=== PATIENT | male | born 1980 | race Caucasian/White ===

== ENCOUNTER 2021-12-19 19:56 | Emergency (ER) | payer MEDICAID ==
[2021-12-19] MEDS ORDERED: Zofran 4 MG/2 ML VIAL IV ONE (20:17)
[2021-12-19] MEDS ORDERED: Sodium Chloride 0.9% 1000 ML 1,000 ML IV STA (20:17)
[2021-12-19] MEDS ORDERED: MORPHINE SULFATE 2 MG INJ IV ONE (20:17)
[2021-12-19] MEDS ORDERED: Zofran 4 MG/2 ML VIAL ONE (20:21)
[2021-12-19] MEDS ORDERED: MORPHINE SULFATE 2 MG INJ ONE (20:21)
[2021-12-19] MEDS ORDERED: Sodium Chloride 0.9% 1000 ML 1,000 ML ONE (20:21)
--- NOTE | 2021-12-19 20:24 | ERPHSYRPT ---
- History of Present Illness Time Seen by Provider: 12/19/21 20:22 Historian: patient Exam Limitations: no limitations Physician History: Patient is a 41-year-old male presents to emergency department for evaluation of epigastric pain. Patient states he has been experiencing epigastric pain intermittently for approximately 1 week. Pain is getting progressively worse. Patient took Percocet today at approximately 4 PM. In spite of this patient is still experiencing pain. Patient admits to history of cholecystectomy. No associated nausea or vomiting. Last bowel movement was at 6 PM. Patient states stool is well formed. No diarrhea. No trauma. No fever. Symptoms are mild to moderate in intensity. No specific worsening improving factors. Patient denies history of the same. He voices no other complaint or concerns at this time. Portions of this note were created with voice recognition technology. There may be grammatical, spelling, punctuation or sound alike errors Timing/Duration: week(s) (1 week) Activities at Onset: none Quality: aching Abdominal Pain Onset Location: epigastric Pain Radiation: no radiation Severity of Pain-Max: moderate Severity of Pain-Current: mild Modifying Factors: Improves With: nothing Associated Symptoms: denies symptoms Previous symptoms: no prior history Allergies/Adverse Reactions: ibuprofen Allergy (Severe, Verified 12/19/21 20:23) Tightness of Throat Iodine and Iodide Containing Produc Allergy (Severe, Verified 12/19/21 20:28) Fainting ketorolac [From Toradol] Allergy (Severe, Verified 12/19/21 20:23) Tightness of Throat methadone Allergy (Severe, Verified 12/19/21 20:23) Vomiting quetiapine [From Seroquel] Allergy (Severe, Verified 12/19/21 20:23) Blisters Home Medications: Cyclobenzaprine HCl 10 mg [Cyclobenzaprine 10 MG] 1 tab PO TID 12/19/21 [History] Oxycodone HCl/Acetaminophen [Percocet 5-325 mg Tablet] 1 tab PO TID 12/19/21 [History] Pregabalin [Lyrica 100Mg] 1 tab PO TID 12/19/21 [History] - Review of Systems Constitutional: No Symptoms, No Fever, No Chills Eyes: No Symptoms Ears, Nose, & Throat: No Symptoms Respiratory: No Symptoms, No Cough, No Dyspnea Cardiac: No Symptoms, No Chest Pain, No Edema, No Syncope Abdominal/Gastrointestinal: No Symptoms, No Abdominal Pain, No Nausea, No Vomiting, No Diarrhea Genitourinary Symptoms: No Symptoms, No Dysuria Musculoskeletal: No Symptoms, No Back Pain, No Neck Pain Skin: No Symptoms, No Rash Neurological: No Symptoms, No Dizziness, No Focal Weakness, No Sensory Changes Psychological: No Symptoms Endocrine: No Symptoms Hematologic/Lymphatic: No Symptoms Immunological/Allergic: No Symptoms All Other Systems: Reviewed and Negative - Nursing Vital Signs Nursing Vital Signs: Initial Vital Signs Pulse Rate 98 H 12/19/21 20:20 Respiratory Rate 18 12/19/21 20:20 Blood Pressure 131/96 12/19/21 20:20 O2 Sat by Pulse Oximetry 97 12/19/21 20:20 Pain Scale Pain Intensity 0 - Physical Exam General Appearance: no apparent distress, alert Eye Exam: PERRL/EOMI, eyes nml inspection Ears, Nose, Throat Exam: normal ENT inspection, TMs normal, pharynx normal, moist mucous membranes Neck Exam: normal inspection, non-tender, supple, full range of motion Respiratory Exam: normal breath sounds, lungs clear, airway intact, No respiratory distress Cardiovascular Exam: regular rate/rhythm, normal heart sounds Gastrointestinal/Abdomen Exam: soft, tenderness (Epigastric tenderness to palpation. Overlying soft tissue intact. No signs of trauma. No distention. No hernia. No peritoneal signs), No distention, No mass, No guarding, No ecchymosis, No organomegaly, No splenomegaly Male Genitalia Exam: other (Patient denies testicular pain or tenderness) Back Exam: normal inspection, normal range of motion, No CVA tenderness, No vertebral tenderness Extremity Exam: normal inspection, normal range of motion, pelvis stable Neurologic Exam: alert, oriented x 3, cooperative, normal mood/affect, nml cerebellar function, sensation nml, No motor deficits Skin Exam: normal color, warm, dry Lymphatic Exam: No adenopathy SpO2 Interpretation: normal SpO2: 98 O2 Delivery: Room Air - Course Nursing assessment & vital signs reviewed: Yes EKG Interpreted by Me: RATE (80), Sinus Rhythm, NORMAL AXIS, NORMAL INTERVALS - CT Exams Abdomen/Pelvis CT Interpretation: Tele-radiologist Report (No comps. Stomach distended with fluid. Normal appendix. Remaining abdomen pelvis negative.) Ordered Tests: Active Orders 24 hr Category Date Time Status EKG-ER Only STAT Care 12/19/21 20:25 Active IV Insertion STAT Care 12/19/21 20:17 Active ABDOMEN AND PELVIS W/0 CONTRAS [CT] Stat Exams 12/19/21 20:18 Taken CBC W DIFF Stat Lab 12/19/21 20:31 Completed CMP Stat Lab 12/19/21 20:31 Completed LIPASE Stat Lab 12/19/21 20:31 Completed TROPONIN Q3H Lab 12/19/21 20:31 Completed TROPONIN Q3H Lab 12/19/21 23:30 Ordered TROPONIN Q3H Lab 12/20/21 02:30 Ordered TROPONIN Q3H Lab 12/20/21 05:30 Ordered TROPONIN Q3H Lab 12/20/21 08:30 Ordered UA W/RFX CULTURE Stat Lab 12/19/21 20:20 Completed Medication Summary Discontinued Medications Generic Name Dose Route Start Last Admin Trade Name Freq PRN Reason Stop Dose Admin Sodium Chloride 1,000 mls @ 999 mls/hr 12/19/21 20:17 12/19/21 21:25 Sodium Chloride 0.9% 1000 Ml IV 12/19/21 21:17 Infused .Q1H1M STA Infusion Sodium Chloride Confirm 12/19/21 20:21 Sodium Chloride 0.9% 1000 Ml Administered 12/19/21 20:22 Dose 1,000 mls @ ud .ROUTE .STK-MED ONE Morphine Sulfate 2 mg 12/19/21 20:17 12/19/21 20:24 Morphine Sulfate 2 Mg/Ml Inj IV 12/19/21 20:18 2 mg STAT ONE Administration Morphine Sulfate Confirm 12/19/21 20:21 Morphine Sulfate 2 Mg/Ml Inj Administered 12/19/21 20:22 Dose 2 mg .ROUTE .STK-MED ONE Ondansetron HCl 4 mg 12/19/21 20:17 12/19/21 20:24 Ondansetron Hcl 4 Mg/2 Ml Vial IV 12/19/21 20:18 4 mg STAT ONE Administration Ondansetron HCl Confirm 12/19/21 20:21 Ondansetron Hcl 4 Mg/2 Ml Vial Administered 12/19/21 20:22 Dose 4 mg .ROUTE .STK-MED ONE Lab/Rad Data: Laboratory Result Diagrams 12/19/21 20:31 12/19/21 20:31 Laboratory Results 07/01/0312/19/21 12/19/21 Range/Units 20:31 20:31 20:31 WBC 9.6 (4.0-10.5) x10^3/uL RBC 4.72 (4.1-5.6) x10^6/uL Hgb 14.2 (12.5-18.0) g/dL Hct 42.9 (42-50) % MCV 90.9 (78-100) fL MCH 30.1 (26-32) pg MCHC 33.1 (32-36) g/dL RDW 12.4 (11.5-14.0) % Plt Count 245 (150-450) x10^3/uL MPV 11.8 H (7.5-11.0) fL Gran % 65.2 (36.0-66.0) % Immature Gran % (Auto) 0.4 (0.00-0.4) % Nucleat RBC Rel Count 0.0 (0.00-0.1) % Eos # (Auto) 0.17 (0-0.5) x10^3/uL Immature Gran # (Auto) 0.04 H (0.00-0.03) x10^3u/L Absolute Lymphs (auto) 2.53 (1.0-4.6) x10^3/uL Absolute Monos (auto) 0.57 (0.0-1.3) x10^3/uL Absolute Nucleated RBC 0.00 (0.00-0.01) x10^3u/L Lymphocytes % 26.3 (24.0-44.0) % Monocytes % 5.9 (0.0-12.0) % Eosinophils % 1.8 (0.00-5.0) % Basophils % 0.4 (0.0-0.4) % Absolute Granulocytes 6.26 (1.4-6.9) x10^3/uL Basophils # 0.04 (0-0.4) x10^3/uL Sodium 135 L (137-145) mmol/L Potassium 3.9 (3.5-5.1) mmol/L Chloride 102 (98-107) mmol/L Carbon Dioxide 29 (22-30) mmol/L Anion Gap 9.0 (5-15) MEQ/L BUN 13 (9-20) mg/dL Creatinine 0.96 (0.66-1.25) mg/dL Estimated GFR > 60.0 ML/MIN Glucose 130 H (74-106) mg/dL Calcium 7.8 L (8.4-10.2) mg/dL Total Bilirubin 0.30 (0.2-1.3) mg/dL AST 28 (17-59) U/L ALT 18 (0-50) U/L Alkaline Phosphatase 54 (38-126) U/L Troponin I < 0.012 (0.000-0.034) ng/mL Serum Total Protein 5.7 L (6.3-8.2) g/dL Albumin 3.2 L (3.5-5.0) g/dL Lipase 47 (23-300) U/L Urinalys Dipstick Clnc Urine Color (YELLOW) Urine Appearance (CLEAR) Urine pH (5-6) Ur Specific Schulter (1.005-1.025) POC Urine Protein Conf (Negative) Urine Ketones (NEGATIVE) Urine Nitrite (NEGATIVE) Urine Bilirubin (NEGATIVE) Urine Urobilinogen (0-1) mg/dL Urine Leukocytes (NEGATIVE) Urine WBC (Auto) (0-5) /HPF Urine RBC (Auto) (0-2) /HPF U Epithel Cells (Auto) (FEW) /HPF Urine Bacteria (Auto) (NEGATIVE) /HPF Urine RBC (0-5) Cezar/ul Urine Mucus (Auto) (NEGATIVE) /HPF Ur Culture Indicated? Urine Glucose (NEGATIVE) mg/dL 12/19/21 Range/Units 20:20 WBC (4.0-10.5) x10^3/uL RBC (4.1-5.6) x10^6/uL Hgb (12.5-18.0) g/dL Hct (42-50) % MCV (78-100) fL MCH (26-32) pg MCHC (32-36) g/dL RDW (11.5-14.0) % Plt Count (150-450) x10^3/uL MPV (7.5-11.0) fL Gran % (36.0-66.0) % Immature Gran % (Auto) (0.00-0.4) % Nucleat RBC Rel Count (0.00-0.1) % Eos # (Auto) (0-0.5) x10^3/uL Immature Gran # (Auto) (0.00-0.03) x10^3u/L Absolute Lymphs (auto) (1.0-4.6) x10^3/uL Absolute Monos (auto) (0.0-1.3) x10^3/uL Absolute Nucleated RBC (0.00-0.01) x10^3u/L Lymphocytes % (24.0-44.0) % Monocytes % (0.0-12.0) % Eosinophils % (0.00-5.0) % Basophils % (0.0-0.4) % Absolute Granulocytes (1.4-6.9) x10^3/uL Basophils # (0-0.4) x10^3/uL Sodium (137-145) mmol/L Potassium (3.5-5.1) mmol/L Chloride (98-107) mmol/L Carbon Dioxide (22-30) mmol/L Anion Gap (5-15) MEQ/L BUN (9-20) mg/dL Creatinine (0.66-1.25) mg/dL Estimated GFR ML/MIN Glucose (74-106) mg/dL Calcium (8.4-10.2) mg/dL Total Bilirubin (0.2-1.3) mg/dL AST (17-59) U/L ALT (0-50) U/L Alkaline Phosphatase (38-126) U/L Troponin I (0.000-0.034) ng/mL Serum Total Protein (6.3-8.2) g/dL Albumin (3.5-5.0) g/dL Lipase (23-300) U/L Urinalys Dipstick Clnc MAIN LAB Urine Color YELLOW (YELLOW) Urine Appearance CLEAR (CLEAR) Urine pH 6.0 (5-6) Ur Specific Schulter 1.015 (1.005-1.025) POC Urine Protein Conf NEGATIVE (Negative) Urine Ketones NEGATIVE (NEGATIVE) Urine Nitrite NEGATIVE (NEGATIVE) Urine Bilirubin NEGATIVE (NEGATIVE) Urine Urobilinogen 0.2 (0-1) mg/dL Urine Leukocytes NEGATIVE (NEGATIVE) Urine WBC (Auto) NONE (0-5) /HPF Urine RBC (Auto) NONE (0-2) /HPF U Epithel Cells (Auto) NONE (FEW) /HPF Urine Bacteria (Auto) NONE (NEGATIVE) /HPF Urine RBC NEGATIVE (0-5) Cezar/ul Urine Mucus (Auto) SLIGHT (NEGATIVE) /HPF Ur Culture Indicated? NO Urine Glucose NEGATIVE (NEGATIVE) mg/dL - Progress Progress: improved Progress Note: Patient reassessed. Epigastric pain resolved. No chest pain or shortness of breath CT abdomen pelvis negative. EKG normal sinus rhythm. Troponin negative. Mild hypocalcemia. Patient received calcium gluconate. Lipase normal. Patient received a dose of Protonix in our ED. He prescription for Protonix was forwarded to patient's pharmacy. Mild hyponatremia. IV fluids infused. Patient states he drinks approximately 20 cans of Coca-Cola per day. Patient advised that he should consider cutting back on the soda pop. Patient states he is ready for discharge. No indication for further work-up at this time. Will discharge home. Patient agrees to follow-up with primary care doctor within 48 hours for evaluation. Portions of this note were created with voice recognition technology. There may be grammatical, spelling, punctuation or sound alike errors 12/19/21 21:39 Counseled pt/family regarding: lab results, diagnosis, need for follow-up, rad results - Departure Departure Disposition: Home Clinical Impression: Hypocalcemia, Epigastric pain, Hypoalbuminemia Condition: Stable Critical Care Time: No Referrals: DOCTOR,NO FAMILY [Primary Care Provider] - Follow up/PCP as directed MARIE FRANK [ACTIVE STAFF] - Follow up/PCP as directed Additional Instructions: Discharge/Care Plan ANDREBRIANAHARVEY Mccallum was seen on 12/19/21 in the Emergency Room. The patient was counseled regarding Diagnosis,Lab results, Imaging studies, need for follow up and when to return to the Emergency Room. Prescriptions given: Discharge Note I have spoken with the patient and/or caregivers. I have explained the patient's condition, diagnosis and treatment plan based on the information available to me at this time. I have answered the patient's and/or caregiver's questions and addressed any concerns. The patient and/or caregivers have as good understanding of the patient's diagnosis, condition and treatment plan as can be expected at this point. The vital signs have been stable. The patient's condition is stable and appropriate for discharge from the emergency department. The patient will pursue further outpatient evaluation with the primary care physician or other designated or consulting physician as outlined in the discharge instructions. The patient and/or caregivers are agreeable to this plan of care and follow-up instructions have been explained in detail. The patient and/or caregivers have received these instruction. The patient/and or caregivers are aware that any significant change in condition or worsening of symptoms should prompt an immediate return to this or the closest emergency department or call 911. Prescriptions: PANTOPRAZOLE 40 mg Tablet [Protonix 40MG Tablet] 40 mg PO QAM 14 Days #14 tab
[2021-12-19 20:36] LABS: Absolute Neutrophil Ct (ANC) 6.26 x10^3/uL (1.4-6.9); Basophil (Absolute #) 0.04 x10^3/uL (0-0.4); Eosinophil % 1.8 % (0.00-5.0); Eosinophil (Absolute #) 0.17 x10^3/uL (0-0.5); Hematocrit 42.9 % (42-50); Hemoglobin 14.2 g/dL (12.5-18.0); Lymphocyte (Absolute #) 2.53 x10^3/uL (1.0-4.6); Lymphocytes % 26.3 % (24.0-44.0); Mean Cell Volume 90.9 fL (78-100); Mean Corpuscular Hemoglobin 30.1 pg (26-32); Mean Corpuscular Hgb Concent. 33.1 g/dL (32-36); Mean Platelet Volume 11.8 fL (7.5-11.0); Monocyte (Absolute #) 0.57 x10^3/uL (0.0-1.3); Monocytes % 5.9 % (0.0-12.0); Neutrophil % 65.2 % (36.0-66.0); Platelet Count 245 x10^3/uL (150-450); Red Blood Count 4.72 x10^6/uL (4.1-5.6); Red Cell Distribution Width 12.4 % (11.5-14.0); White Blood Count 9.6 x10^3/uL (4.0-10.5)
[2021-12-19 20:45] LABS: Mucus SLIGHT /HPF (NEGATIVE)
[2021-12-19 20:46] LABS: Appearance CLEAR (CLEAR); Bilirubin NEGATIVE (NEGATIVE); Glucose NEGATIVE (NEGATIVE); Ketones NEGATIVE (NEGATIVE)
[2021-12-19 20:47] LABS: Dipstick done @ ? MAIN LAB; Nitrite NEGATIVE (NEGATIVE); Protein,Urine Dip NEGATIVE (Negative); RBC NEGATIVE Ery/ul (0-5); Specific Gravity 1.015 (1.005-1.025); Urine Cultured Indicated? NO; Urobilinogen 0.2 mg/dL (0-1)
[2021-12-19 21:01] LABS: ALBUMIN 3.2 g/dL (3.5-5.0); ALKALINE PHOSPHATASE 54 U/L (38-126); BLOOD UREA NITROGEN 13 mg/dL (9-20); CHLORIDE 102 mmol/L (98-107); Calcium 7.8 mg/dL (8.4-10.2); Carbon Dioxide 29 mmol/L (22-30); Creatinine 1 0.96 mg/dL (0.66-1.25); EST GLOMERULAR FILTRATION RATE > 60.0 ML/MIN; Glucose 130 mg/dL (74-106); LIPASE 47 U/L (23-300); Potassium 3.9 mmol/L (3.5-5.1); SGOT/AST 28 U/L (17-59); SGPT/ALT 18 U/L (0-50); SODIUM 135 mmol/L (137-145); Total Protein 5.7 g/dL (6.3-8.2)
[2021-12-19 21:13] VITALS: BP 110/69; PULSE 76
[2021-12-19] MEDS ORDERED: Calcium Gluconate 10% 1000 MG IV ONE ×2 (21:33→21:36)
[2021-12-19] MEDS ORDERED: PROTONIX 40 MG IV IV ONE ×2 (21:34→21:36)
[2021-12-19 21:36] VITALS: O2SAT 98
--- NOTE | 2021-12-20 09:07 | XRAY ---
Indication: Epigastric pain. Multiple contiguous axial images obtained through the abdomen and pelvis without contrast. Comparison: None Lung bases clear. Heart not enlarged. Stomach distended with food. Noncontrasted stomach and bowel loops appear nonobstructed. Normal air-filled appendix. Previous cholecystectomy. No free fluid/air. Remaining liver, pancreas, spleen, adrenal glands, kidneys, ureters, and bladder are unremarkable for noncontrast exam. Minimal aortic calcifications without aneurysm. Osseous structures intact. No ventral or inguinal hernias. Impression: Negative CT abdomen/pelvis without contrast exam.
== END 2021-12-19 21:54 | disposition home or self-care (01) ==
LOC: ED 19:56
DX: E83.51 Hypocalcemia (principal); E88.09 Other disorders of plasma-protein metabolism, not elsewhere classified; R10.13 Epigastric pain; Z79.891 Long term (current) use of opiate analgesic; Z79.899 Other long term (current) drug therapy
CPT/HCPCS: 36000; 36415; 74176; 80053; 81015; 83690; 84484; 85025; 93005; 96374; 96375; 99284; J0610; J2270; J2405

== ENCOUNTER 2022-03-01 18:29 | Emergency (ER) | payer MEDICARE, MEDICAID ==
--- NOTE | 2022-03-01 19:46 | ERPHSYRPT ---
- History of Present Illness Time Seen by Provider: 03/01/22 19:41 Source: patient Exam Limitations: no limitations Patient Subjective Stated Complaint: pt here for chronic neck and back pain, with pain radiating to left arm today after working in yard Triage Nursing Assessment: pt alert, resp easy, skin w/d/p. was able to undress self, face mask in place Physician History: pt states these symptoms are similar to his usual neck pain symptoms but have increased due to some lifting today. He is on paion management. His left arm pain and numbness are unchanged from baseline. No fever, last epidural 21 January. No blood thinners. No current bowel symptoms. No use of blood thinners or aspirin. Pt was advised of risks for epidural hematoma or abscess or other pathology even without new signs , and also including cardiac possibility and he understands but wishes to decline furhter w/u with CT/MRI or transfer to neuro capable facility or any cardiac workup (except EKG) , at this time and has the capacity to make this choice. No current new neuro deficits on exam. no recent trauma. Will proceed with efforts at pain relief. Timing/Duration: day(s), gradual onset, worse Method of Injury: other (over use on chronic baseline condition) Back Pain Location: C-spine Severity of Pain-Max: moderate Severity of Pain-Current: moderate Modifying Factors: Improves With: movement, pain medication Associated Symptoms: denies symptoms, other (no new symptoms just increased pain) Previous symptoms: same symptoms as today, recently seen, recently treated Allergies/Adverse Reactions: ibuprofen Allergy (Severe, Verified 03/01/22 18:39) Tightness of Throat Iodine and Iodide Containing Produc Allergy (Severe, Verified 03/01/22 18:39) Fainting ketorolac [From Toradol] Allergy (Severe, Verified 03/01/22 18:39) Tightness of Throat methadone Allergy (Severe, Verified 03/01/22 18:39) Vomiting quetiapine [From Seroquel] Allergy (Severe, Verified 03/01/22 18:39) Blisters Home Medications: Cyclobenzaprine HCl 10 mg [Cyclobenzaprine 10 MG] 1 tab PO TID 12/19/21 [History] Oxycodone HCl/Acetaminophen [Percocet 5-325 mg Tablet] 1 tab PO TID 12/19/21 [History] Pregabalin [Lyrica 100Mg] 1 tab PO TID 12/19/21 [History] Hx Tetanus, Diphtheria Vaccination/Date Given: Yes Hx Influenza Vaccination/Date Given: No Hx Pneumococcal Vaccination/Date Given: No Immunizations Up to Date: Yes Travel Risk - International Travel Have you traveled outside of the country in past 3 weeks: No - Coronavirus Screening Are you exhibiting any of the following symptoms?: No Close contact with a COVID-19 positive Pt in past 14-21 Days: No - Vaccine Status Have you recieved a Covid-19 vaccination: No - Review of Systems Constitutional: No Fever, No Chills Eyes: No Symptoms Ears, Nose, & Throat: No Symptoms Respiratory: No Cough, No Dyspnea Cardiac: No Chest Pain, No Edema, No Syncope Abdominal/Gastrointestinal: No Abdominal Pain, No Nausea, No Vomiting, No Diarrhea Genitourinary Symptoms: No Dysuria Musculoskeletal: Back Pain, Neck Pain Skin: No Rash Neurological: No Dizziness, No Focal Weakness, No Sensory Changes Psychological: No Symptoms Endocrine: No Symptoms Hematologic/Lymphatic: No Symptoms Immunological/Allergic: No Symptoms All Other Systems: Reviewed and Negative - Past Medical History Pertinent Past Medical History: Yes Neurological History: No Pertinent History ENT History: No Pertinent History Cardiac History: Arrhythmia, Hypertension Respiratory History: No Pertinent History Endocrine Medical History: No Pertinent History Musculoskeletal History: Fractures GI Medical History: Gallbladder Disease History: No Pertinent History Psycho-Social History: Anxiety, Depression Male Reproductive Disorders: No Pertinent History Other Medical History: c7 fracture/snap. c4,5,6, fused - Past Surgical History Past Surgical History: Yes Neuro Surgical History: No Pertinent History Cardiac: No Pertinent History Respiratory: No Pertinent History Gastrointestinal: Cholecystectomy Genitourinary: No Pertinent History Musculoskeletal: Orthopedic Surgery, Other Male Surgical History: No Pertinent History Other Surgical History: spinal x2. carpal tunnel - Social History Smoking Status: Former smoker Exposure to second hand smoke: Yes Drug Use: marijuana Patient Lives Alone: No - Nursing Vital Signs Nursing Vital Signs: Initial Vital Signs Temperature 98.2 F 03/01/22 18:40 Pulse Rate 82 03/01/22 18:40 Respiratory Rate 18 03/01/22 18:40 Blood Pressure 123/84 03/01/22 18:40 O2 Sat by Pulse Oximetry 99 03/01/22 18:40 Pain Scale Pain Intensity [Back] 6 Pain Intensity 9 - Physical Exam General Appearance: no apparent distress, alert Eye Exam: PERRL/EOMI, eyes nml inspection Ears, Nose, Throat Exam: normal ENT inspection Neck Exam: normal inspection, non-tender, supple, full range of motion, No meningismus, No midline tenderness Respiratory Exam: normal breath sounds, lungs clear, No respiratory distress Cardiovascular Exam: regular rate/rhythm, normal heart sounds Gastrointestinal Exam: soft, No tenderness, No mass Rectal Exam: deferred Back Exam: normal inspection, decreased range of motion, muscle spasm, No vertebral tenderness, No point tenderness Extremity Exam: normal inspection, normal range of motion, No calf tenderness, No pedal edema Peripheral Pulses: carotid (R): 2+, carotid (L): 2+, femoral (R): 2+, femoral (L): 2+, dorsalis-pedis (R): 2+, dorsalis-pedis (L): 2+ Neurologic Exam: alert, oriented x 3, cooperative, can feeder II-XII nml as tested, normal mood/affect, nml cerebellar function, nml station & gait, sensation nml, No motor deficits Skin Exam: normal color, warm, dry, No rash SpO2 Interpretation: normal SpO2: 99 O2 Delivery: Room Air - Course Nursing assessment & vital signs reviewed: Yes EKG Interpreted by Me: Sinus Rhythm, Non-specific ST Changes, Other (poor r wave prog ) Ordered Tests: Medication Summary Discontinued Medications Generic Name Dose Route Start Last Admin Trade Name Mario PRN Reason Stop Dose Admin Dexamethasone Sodium Phosphate 10 mg 03/01/22 19:48 03/01/22 20:03 Dexamethasone Sod Phosphate 10 Mg/Ml IV 03/01/22 19:49 10 mg STAT ONE Administration Dexamethasone Sodium Phosphate Confirm 03/01/22 19:56 Dexamethasone Sod Phosphate 10 Mg/Ml Administered 03/01/22 19:57 Dose 10 mg .ROUTE .STK-MED ONE Hydromorphone HCl 1 mg 03/01/22 19:48 03/01/22 20:03 Hydromorphone 1 Mg/1ml Inj 1 Mg/Ml Syringe IV 03/01/22 19:49 1 mg STAT ONE Administration Hydromorphone HCl Confirm 03/01/22 19:56 Hydromorphone 1 Mg/1ml Inj 1 Mg/Ml Syringe Administered 03/01/22 19:57 Dose 1 mg .ROUTE .STK-MED ONE Sodium Chloride 1,000 mls @ 999 mls/hr 03/01/22 19:48 03/01/22 20:02 Sodium Chloride 0.9% 1000 Ml IV 03/01/22 20:48 999 mls/hr .Q1H1M STA Administration Sodium Chloride Confirm 03/01/22 19:57 Sodium Chloride 0.9% 1000 Ml Administered 03/01/22 19:58 Dose 1,000 mls @ ud .ROUTE .STK-MED ONE Ondansetron HCl 4 mg 03/01/22 19:48 03/01/22 20:03 Ondansetron Hcl 4 Mg/2 Ml Vial IV 03/01/22 19:49 4 mg STAT ONE Administration Ondansetron HCl Confirm 03/01/22 19:56 Ondansetron Hcl 4 Mg/2 Ml Vial Administered 03/01/22 19:57 Dose 4 mg .ROUTE .STK-MED ONE - Progress Progress: improved, re-examined Progress Note: 03/01/22 20:29 pt advisaed EKG could show a cardiac condition , still declines further eval. Counseled pt/family regarding: diagnosis, need for follow-up - Departure Departure Disposition: Home Clinical Impression: exacerbation of chronic neck pain Condition: Good Critical Care Time: No Referrals: DOCTOR,NO FAMILY [Primary Care Provider] - Follow up/PCP as directed Instructions: Neck Pain, Chronic Neck Pain (DC) Additional Instructions: You have some findings of slow r wave progression on the EKG which can represent some cardiac conditions including coronary artery disease , but may also be normal for you. THis is good to see your Dr. for considering further testing, a nd to return meantime if any cardiac symptoms occur. Continue with your Pain Dr. for your chronic neck pain, and return meantime if needed or any concerns. As discussed there can be undetected complications such as epidural hematomas or abscesses as well, and you should also discuss with your Dr. and return meantime if there is new weakness or bowel/bladder problems , or fever or any new neuro symptoms.
[2022-03-01] MEDS ORDERED: Sodium Chloride 0.9% 1000 ML 1,000 ML IV STA (19:48)
[2022-03-01] MEDS ORDERED: Zofran 4 MG/2 ML VIAL IV ONE (19:48)
[2022-03-01] MEDS ORDERED: Hydromorphone 1 mg/ml Injection IV ONE (19:48)
[2022-03-01] MEDS ORDERED: DECADRON 10MG INJ. IV ONE (19:48)
[2022-03-01] MEDS ORDERED: Hydromorphone 1 mg/ml Injection ONE (19:56)
[2022-03-01] MEDS ORDERED: Zofran 4 MG/2 ML VIAL ONE (19:56)
[2022-03-01] MEDS ORDERED: DECADRON 10MG INJ. ONE (19:56)
[2022-03-01] MEDS ORDERED: Sodium Chloride 0.9% 1000 ML 1,000 ML ONE (19:57)
[2022-03-01 20:35] VITALS: O2SAT 99
[2022-03-01 21:09] VITALS: BP 131/95; PULSE 72
== END 2022-03-01 21:13 | disposition home or self-care (01) ==
LOC: ED 18:29
DX: G89.29 Other chronic pain (principal); M54.2 Cervicalgia; I10 Essential (primary) hypertension; Z79.891 Long term (current) use of opiate analgesic; Z79.899 Other long term (current) drug therapy; Z28.310 Unvaccinated for COVID-19
CPT/HCPCS: 36000; 96374; 96375; 99284; J1100; J1170; J2405

== ENCOUNTER 2022-03-24 15:39 | Emergency (ER) | payer MEDICARE, MEDICAID ==
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
[2022-03-24 16:20] LABS: Absolute Neutrophil Ct (ANC) 7.27 x10^3/uL (1.4-6.9); Basophil (Absolute #) 0.04 x10^3/uL (0-0.4); Eosinophil % 0.6 % (0.00-5.0); Eosinophil (Absolute #) 0.06 x10^3/uL (0-0.5); Hematocrit 40.9 % (42-50); Hemoglobin 13.5 g/dL (12.5-18.0); Lymphocyte (Absolute #) 1.74 x10^3/uL (1.0-4.6); Mean Cell Volume 90.9 fL (78-100); Mean Platelet Volume 11.7 fL (7.5-11.0); Monocyte (Absolute #) 0.55 x10^3/uL (0.0-1.3); Monocytes % 5.7 % (0.0-12.0); Platelet Count 243 x10^3/uL (150-450); Red Cell Distribution Width 11.9 % (11.5-14.0); White Blood Count 9.7 x10^3/uL (4.0-10.5)
[2022-03-24 16:31] LABS: Mucus SLIGHT /HPF (NEGATIVE); RBC 0-2 /HPF (0-2); WBC 0-2 /HPF (0-5)
[2022-03-24 16:38] LABS: ACETAMINOPHEN < 10 ug/ml (10-30); ALBUMIN 3.9 g/dL (3.5-5.0); ALKALINE PHOSPHATASE 53 U/L (38-126); ANION GAP 9.5 MEQ/L (5-15); BLOOD UREA NITROGEN 6 mg/dL (9-20); CHLORIDE 103 mmol/L (98-107); Calcium 8.5 mg/dL (8.4-10.2); Carbon Dioxide 29 mmol/L (22-30); Creatinine 1 0.79 mg/dL (0.66-1.25); EST GLOMERULAR FILTRATION RATE > 60.0 ML/MIN; ETHYL ALCOHOL < 10 mg/dL (0-10); Glucose 123 mg/dL (74-106); Potassium 3.3 mmol/L (3.5-5.1); SALICYLATE < 1.0 mg/dL (2-20); SGOT/AST 28 U/L (17-59); SGPT/ALT 20 U/L (0-50); SODIUM 138 mmol/L (137-145); Total Protein 6.1 g/dL (6.3-8.2)
[2022-03-24 16:41] LABS: Appearance CLEAR (CLEAR); Bilirubin NEGATIVE (NEGATIVE); Dipstick done @ ? MAIN LAB; Glucose NEGATIVE (NEGATIVE); Ketones NEGATIVE (NEGATIVE); Nitrite NEGATIVE (NEGATIVE); Protein,Urine Dip NEGATIVE (Negative); RBC NEGATIVE Ery/ul (0-5); Urobilinogen 0.2 mg/dL (0-1)
[2022-03-24 16:42] LABS: Urine Cultured Indicated? NO
[2022-03-24 16:47] LABS: Barbiturate,Urine NEGATIVE (NEGATIVE); Benzodiazepine,Urine NEGATIVE (NEGATIVE); Cocaine,Urine NEGATIVE (NEGATIVE); Methadone,Urine NEGATIVE (NEGATIVE); Opiate,Urine NEGATIVE (NEGATIVE); PCP,Urine NEGATIVE (NEGATIVE); THC,Urine POSITIVE (NEGATIVE)
[2022-03-24 16:50] LABS: Amphetamine,Urine NEGATIVE (NEGATIVE)
[2022-03-24 17:59] LABS: INFLUENZA A NEGATIVE (NEGATIVE); INFLUENZA B NEGATIVE (NEGATIVE); RESPIRATORY SYNCTIAL VIRUS NEGATIVE (Negative); SARS-CoV-2 Xpert Express NEGATIVE (NEGATIVE)
[2022-03-24] MEDS ORDERED: PERCOCET TABLET 5/325MG PO STA (18:57)
[2022-03-24] MEDS ORDERED: PERCOCET TABLET 5/325MG ONE (19:02)
[2022-03-24 21:36] VITALS: BP 134/90; PULSE 74
[2022-03-25 05:57] VITALS: O2SAT 95
== END 2022-03-24 21:37 ==
LOC: ED 15:39
DX: R45.851 Suicidal ideations (principal); R45.850 Homicidal ideations; R45.1 Restlessness and agitation; Z91.14 Patient's other noncompliance with medication regimen; I10 Essential (primary) hypertension; Z79.891 Long term (current) use of opiate analgesic; Z79.899 Other long term (current) drug therapy; Z28.310 Unvaccinated for COVID-19; Z20.828 Contact with and (suspected) exposure to other viral communicable diseases
CPT/HCPCS: 0241U; 36415; 80053; 80307; 81015; 85025; 93005; 99284; G0480; A9270-GY

== ENCOUNTER 2022-04-24 19:30 | Observation (INO) | payer MEDICARE ==
[2022-04-24] MEDS ORDERED: MORPHINE SULFATE 4 MG INJ IV ONE (20:11)
[2022-04-24] MEDS ORDERED: BABY ASPIRIN 81 MG CHEW PO ONE (20:11)
[2022-04-24] MEDS ORDERED: Zofran 4 MG/2 ML VIAL IV ONE (20:11)
[2022-04-24] MEDS ORDERED: Zofran 4 MG/2 ML VIAL ONE (20:14)
[2022-04-24] MEDS ORDERED: BABY ASPIRIN 81 MG CHEW ONE (20:14)
[2022-04-24] MEDS ORDERED: MORPHINE SULFATE 4 MG INJ ONE (20:14)
[2022-04-24 20:29] LABS: Absolute Neutrophil Ct (ANC) 6.92 x10^3/uL (1.4-6.9); Basophil (Absolute #) 0.05 x10^3/uL (0-0.4); Eosinophil % 1.2 % (0.00-5.0); Eosinophil (Absolute #) 0.13 x10^3/uL (0-0.5); Hematocrit 43.5 % (42-50); Lymphocyte (Absolute #) 2.92 x10^3/uL (1.0-4.6); Lymphocytes % 27.1 % (24.0-44.0); Mean Cell Volume 93.1 fL (78-100); Mean Corpuscular Hgb Concent. 32.2 g/dL (32-36); Mean Platelet Volume 12.2 fL (7.5-11.0); Monocyte (Absolute #) 0.74 x10^3/uL (0.0-1.3); Monocytes % 6.9 % (0.0-12.0); Platelet Count 281 x10^3/uL (150-450); Red Blood Count 4.67 x10^6/uL (4.1-5.6); Red Cell Distribution Width 12.3 % (11.5-14.0); White Blood Count 10.8 x10^3/uL (4.0-10.5)
[2022-04-24 20:43] LABS: ALKALINE PHOSPHATASE 59 U/L (38-126); ANION GAP 12.3 MEQ/L (5-15); BLOOD UREA NITROGEN 10 mg/dL (9-20); CHLORIDE 102 mmol/L (98-107); CK-Creatinine Phosphokinase 64 U/L (55-170); Calcium 8.9 mg/dL (8.4-10.2); Carbon Dioxide 28 mmol/L (22-30); Creatinine 1 0.86 mg/dL (0.66-1.25); EST GLOMERULAR FILTRATION RATE > 60.0 ML/MIN; Glucose 118 mg/dL (74-106); SGOT/AST 22 U/L (17-59); SGPT/ALT 21 U/L (0-50); SODIUM 138 mmol/L (137-145); Total Protein 6.3 g/dL (6.3-8.2)
[2022-04-24 20:45] LABS: Amphetamine,Urine NEGATIVE (NEGATIVE); Barbiturate,Urine NEGATIVE (NEGATIVE); Benzodiazepine,Urine NEGATIVE (NEGATIVE); Cocaine,Urine NEGATIVE (NEGATIVE); Methadone,Urine NEGATIVE (NEGATIVE); Opiate,Urine NEGATIVE (NEGATIVE); PCP,Urine NEGATIVE (NEGATIVE); THC,Urine POSITIVE (NEGATIVE)
--- NOTE | 2022-04-24 20:49 | ERPHSYRPT ---
- History of Present Illness Time Seen by Provider: 04/24/22 19:45 Historian: patient Exam Limitations: no limitations Patient Subjective Stated Complaint: pt states while walking through his house he started having chest pain that was severe and lasted approx 3-5 minutes. states now he has some lt sided tightness and pressure radiating to his lt shoulder Triage Nursing Assessment: pt alert and oriented, answers questions approp. pt ambulatory with steady gait noted. respirations nonlabored with lungs cta. skin warm and dry. heart rate 112 on monitor, sinus tach with occasional pvc. Physician History: 42-year-old male with history of atrial arrhythmia on metoprolol, hypertension, chronic pain on pain medication, marijuana abuse presented in the ER with sudden onset left-sided chest pain almost 3 hours ago while he was walking in the house. Moderate intensity sharp nature, radiating to left shoulder/arm, agg ravated with movements and hurts to take a deep breath. No cough fever or chills reported. Timing/Duration: hour(s) (3), constant, gradual onset, worse Activities at Onset: activity Quality: sharpness Location: substernal Chest Pain Radiation: arm Severity of Pain-Max: moderate Severity of Pain-Current: moderate Modifying Factors: Improves With: nothing Associated Symptoms: denies symptoms Prior Chest Pain/Cardiac Workup: no prior cardiac workup Nitro Today/Relief: no nitro taken today Aspirin Treatment Today: unknown Allergies/Adverse Reactions: ibuprofen Allergy (Severe, Verified 04/24/22 19:46) Tightness of Throat Iodine and Iodide Containing Produc Allergy (Severe, Verified 04/24/22 19:46) Fainting ketorolac [From Toradol] Allergy (Severe, Verified 04/24/22 19:46) Tightness of Throat methadone Allergy (Severe, Verified 04/24/22 19:46) Vomiting quetiapine [From Seroquel] Allergy (Severe, Verified 04/24/22 19:46) Blisters Home Medications: Cyclobenzaprine HCl 10 mg [Cyclobenzaprine 10 MG] 1 tab PO TID 12/19/21 [History] Oxycodone HCl/Acetaminophen [Percocet 5-325 mg Tablet] 1 tab PO TID 12/19/21 [History] Pregabalin [Lyrica 100Mg] 1 tab PO TID 12/19/21 [History] Aspirin EC 81 mg [Ecotrin 81 mg] 81 mg PO DAILY 03/24/22 [History] OLANZapine [Olanzapine] 10 mg PO HS 03/24/22 [History] Atorvastatin Calcium 20 mg PO DAILY 04/24/22 [History] Metoprolol Tartrate 25 mg [Lopressor 25MG Tab] 25 mg PO BID 04/24/22 [History] Hx Tetanus, Diphtheria Vaccination/Date Given: Yes Hx Influenza Vaccination/Date Given: No Hx Pneumococcal Vaccination/Date Given: No Immunizations Up to Date: Yes Travel Risk - International Travel Have you traveled outside of the country in past 3 weeks: No - Coronavirus Screening Are you exhibiting any of the following symptoms?: No Close contact with a COVID-19 positive Pt in past 14-21 Days: No - Vaccine Status Have you recieved a Covid-19 vaccination: No - Review of Systems Constitutional: No Symptoms Eyes: No Symptoms Ears, Nose, & Throat: No Symptoms Respiratory: No Symptoms Cardiac: Chest Pain, Palpitations Abdominal/Gastrointestinal: No Symptoms Genitourinary Symptoms: No Symptoms Musculoskeletal: No Symptoms Skin: No Symptoms Neurological: No Symptoms Psychological: No Symptoms Endocrine: No Symptoms Hematologic/Lymphatic: No Symptoms Immunological/Allergic: No Symptoms - Past Medical History Pertinent Past Medical History: Yes Neurological History: No Pertinent History ENT History: No Pertinent History Cardiac History: Arrhythmia, Hypertension Respiratory History: No Pertinent History Endocrine Medical History: No Pertinent History Musculoskeletal History: Fractures GI Medical History: Gallbladder Disease History: No Pertinent History Psycho-Social History: Anxiety, Depression Male Reproductive Disorders: No Pertinent History Other Medical History: c7 fracture/snap. c4,5,6, fused - Past Surgical History Past Surgical History: Yes Neuro Surgical History: No Pertinent History Cardiac: No Pertinent History Respiratory: No Pertinent History Gastrointestinal: Cholecystectomy Genitourinary: No Pertinent History Musculoskeletal: Orthopedic Surgery, Other Male Surgical History: No Pertinent History Other Surgical History: spinal x2. carpal tunnel - Social History Smoking Status: Former smoker Exposure to second hand smoke: Yes Drug Use: marijuana Patient Lives Alone: No - Nursing Vital Signs Nursing Vital Signs: Initial Vital Signs Temperature 98.1 F 04/24/22 19:30 Pulse Rate 119 H 04/24/22 19:30 Respiratory Rate 18 04/24/22 19:30 Blood Pressure 121/98 04/24/22 19:30 O2 Sat by Pulse Oximetry 98 04/24/22 19:30 Pain Scale Pain Intensity 2 - Physical Exam General Appearance: no apparent distress, alert, anxiety Eye Exam: PERRL/EOMI Ears, Nose, Throat Exam: normal ENT inspection, pharynx normal Neck Exam: normal inspection, non-tender, supple, full range of motion Respiratory Exam: normal breath sounds, lungs clear Cardiovascular Exam: normal heart sounds, tachycardia Gastrointestinal/Abdomen Exam: soft, normal bowel sounds, No tenderness Back Exam: normal inspection, normal range of motion Extremity Exam: normal inspection, normal range of motion Neurologic Exam: alert, oriented x 3, cooperative Skin Exam: normal color SpO2 Interpretation: normal SpO2: 96 O2 Delivery: Room Air - Course EKG Interpreted by Me: RATE (119), Sinus Tach, NORMAL AXIS, NORMAL INTERVALS, Other (PVC, LVH) Ordered Tests: Active Orders 24 hr Category Date Time Status Supervisory Cbp Officer STAT Care 04/24/22 20:11 Active EKG-ER Only STAT Care 04/24/22 20:11 Active IV Insertion STAT Care 04/24/22 20:11 Active CHEST 1 VIEW (PORTABLE) Stat Exams 04/24/22 20:22 Taken CBC W DIFF Stat Lab 04/24/22 20:11 Completed CK-Creatinine Phosphokinase Stat Lab 04/24/22 19:40 Completed CMP Stat Lab 04/24/22 19:40 Completed D-DIMER QUANTITATIVE Stat Lab 04/24/22 19:40 Completed NT PRO BNP Stat Lab 04/24/22 19:40 Completed TROPONIN Q4H Lab 04/24/22 20:15 Completed TROPONIN Q4H Lab 04/25/22 00:15 Ordered TROPONIN Q4H Lab 04/25/22 04:15 Ordered Urine Triage Profile Stat Lab 04/24/22 20:24 Completed Transfer Order Routine Transfer 04/24/22 Ordered Medication Summary Discontinued Medications Generic Name Dose Route Start Last Admin Trade Name Freq PRN Reason Stop Dose Admin Aspirin 324 mg 04/24/22 20:11 04/24/22 20:17 Aspirin 81 Mg Tab.Chew PO 04/24/22 20:12 324 mg STAT ONE Administration Aspirin Confirm 04/24/22 20:14 Aspirin 81 Mg Tab.Chew Administered 04/24/22 20:15 Dose 324 mg .ROUTE .STK-MED ONE Morphine Sulfate 4 mg 04/24/22 20:11 04/24/22 20:17 Morphine Sulfate 4 Mg/Ml Injection IV 04/24/22 20:12 4 mg STAT ONE Administration Morphine Sulfate Confirm 04/24/22 20:14 Morphine Sulfate 4 Mg/Ml Injection Administered 04/24/22 20:15 Dose 4 mg .ROUTE .STK-MED ONE Ondansetron HCl 4 mg 04/24/22 20:11 04/24/22 20:17 Ondansetron Hcl 4 Mg/2 Ml Vial IV 04/24/22 20:12 4 mg STAT ONE Administration Ondansetron HCl Confirm 04/24/22 20:14 Ondansetron Hcl 4 Mg/2 Ml Vial Administered 04/24/22 20:15 Dose 4 mg .ROUTE .STK-MED ONE Lab/Rad Data: Laboratory Result Diagrams 04/24/22 20:11 04/24/22 19:40 Laboratory Results 04/24/22 04/24/22 04/24/22 Range/Units 20:24 20:15 20:11 WBC 10.8 H (4.0-10.5) x10^3/uL RBC 4.67 (4.1-5.6) x10^6/uL Hgb 14.0 (12.5-18.0) g/dL Hct 43.5 (42-50) % MCV 93.1 (78-100) fL MCH 30.0 (26-32) pg MCHC 32.2 (32-36) g/dL RDW 12.3 (11.5-14.0) % Plt Count 281 (150-450) x10^3/uL MPV 12.2 H (7.5-11.0) fL Gran % 64.0 (36.0-66.0) % Immature Gran % (Auto) 0.3 (0.00-0.4) % Nucleat RBC Rel Count 0.0 (0.00-0.1) % Eos # (Auto) 0.13 (0-0.5) x10^3/uL Immature Gran # (Auto) 0.03 (0.00-0.03) x10^3u/L Absolute Lymphs (auto) 2.92 (1.0-4.6) x10^3/uL Absolute Monos (auto) 0.74 (0.0-1.3) x10^3/uL Absolute Nucleated RBC 0.00 (0.00-0.01) x10^3u/L Lymphocytes % 27.1 (24.0-44.0) % Monocytes % 6.9 (0.0-12.0) % Eosinophils % 1.2 (0.00-5.0) % Basophils % 0.5 (0.0-0.4) % Absolute Granulocytes 6.92 H (1.4-6.9) x10^3/uL Basophils # 0.05 (0-0.4) x10^3/uL D-Dimer (0.0-0.50) mg/L Sodium (137-145) mmol/L Potassium (3.5-5.1) mmol/L Chloride (98-107) mmol/L Carbon Dioxide (22-30) mmol/L Anion Gap (5-15) MEQ/L BUN (9-20) mg/dL Creatinine (0.66-1.25) mg/dL Estimated GFR ML/MIN Glucose (74-106) mg/dL Calcium (8.4-10.2) mg/dL Total Bilirubin (0.2-1.3) mg/dL AST (17-59) U/L ALT (0-50) U/L Alkaline Phosphatase (38-126) U/L Creatine Kinase (55-170) U/L Troponin I < 0.012 (0.000-0.034) ng/mL NT-Pro-B Natriuret Pep (0-450) pg/mL Serum Total Protein (6.3-8.2) g/dL Albumin (3.5-5.0) g/dL Urine Opiates Level NEGATIVE (NEGATIVE) Ur Methadone NEGATIVE (NEGATIVE) Urine Barbiturates NEGATIVE (NEGATIVE) Ur Phencyclidine (PCP) NEGATIVE (NEGATIVE) Urine Amphetamine NEGATIVE (NEGATIVE) U Benzodiazepine Level NEGATIVE (NEGATIVE) Urine Cocaine NEGATIVE (NEGATIVE) Urine Marijuana (THC) POSITIVE (NEGATIVE) 04/24/22 04/24/22 Range/Units 19:40 19:40 WBC (4.0-10.5) x10^3/uL RBC (4.1-5.6) x10^6/uL Hgb (12.5-18.0) g/dL Hct (42-50) % MCV (78-100) fL MCH (26-32) pg MCHC (32-36) g/dL RDW (11.5-14.0) % Plt Count (150-450) x10^3/uL MPV (7.5-11.0) fL Gran % (36.0-66.0) % Immature Gran % (Auto) (0.00-0.4) % Nucleat RBC Rel Count (0.00-0.1) % Eos # (Auto) (0-0.5) x10^3/uL Immature Gran # (Auto) (0.00-0.03) x10^3u/L Absolute Lymphs (auto) (1.0-4.6) x10^3/uL Absolute Monos (auto) (0.0-1.3) x10^3/uL Absolute Nucleated RBC (0.00-0.01) x10^3u/L Lymphocytes % (24.0-44.0) % Monocytes % (0.0-12.0) % Eosinophils % (0.00-5.0) % Basophils % (0.0-0.4) % Absolute Granulocytes (1.4-6.9) x10^3/uL Basophils # (0-0.4) x10^3/uL D-Dimer < 0.19 (0.0-0.50) mg/L Sodium 138 (137-145) mmol/L Potassium 4.0 (3.5-5.1) mmol/L Chloride 102 (98-107) mmol/L Carbon Dioxide 28 (22-30) mmol/L Anion Gap 12.3 (5-15) MEQ/L BUN 10 (9-20) mg/dL Creatinine 0.86 (0.66-1.25) mg/dL Estimated GFR > 60.0 ML/MIN Glucose 118 H (74-106) mg/dL Calcium 8.9 (8.4-10.2) mg/dL Total Bilirubin 0.30 (0.2-1.3) mg/dL AST 22 (17-59) U/L ALT 21 (0-50) U/L Alkaline Phosphatase 59 (38-126) U/L Creatine Kinase 64 (55-170) U/L Troponin I (0.000-0.034) ng/mL NT-Pro-B Natriuret Pep 18.0 (0-450) pg/mL Serum Total Protein 6.3 (6.3-8.2) g/dL Albumin 4.0 (3.5-5.0) g/dL Urine Opiates Level (NEGATIVE) Ur Methadone (NEGATIVE) Urine Barbiturates (NEGATIVE) Ur Phencyclidine (PCP) (NEGATIVE) Urine Amphetamine (NEGATIVE) U Benzodiazepine Level (NEGATIVE) Urine Cocaine (NEGATIVE) Urine Marijuana (THC) (NEGATIVE) - Progress Progress: improved Air Movement: good Progress Note: 04/24/22 22:28 42-year-old is evaluated for left-sided chest pain. EKG showed sinus tach with no ST elevations. Negative initial troponin and D-dimer. Chest x-ray negative for any acute cardiopulmonary findings reviewed by me, official report is pend ing. He is given morphine for symptomatic relief his pain is better but still not completely resolved. Tachycardia is improved. Discussed with Dr. Putnam and patient is being admitted for observation for rule out ACS. 04/24/22 22:30 Blood Culture(s) Obtained: No Antibiotics given: No Discussed with : Leonard Will see patient in: hospital (observation) Counseled pt/family regarding: lab results, diagnosis, rad results, smoking cessation - Departure Departure Disposition: Observation Clinical Impression: Chest pain, rule out acute myocardial infarction, Chest pain rule out acute OR Condition: Stable Critical Care Time: No Referrals: DOCTOR,NO FAMILY [Primary Care Provider] - Follow up/PCP as directed
[2022-04-24 23:17] LABS: INFLUENZA A NEGATIVE (NEGATIVE); INFLUENZA B NEGATIVE (NEGATIVE); RESPIRATORY SYNCTIAL VIRUS NEGATIVE (Negative); SARS-CoV-2 Xpert Express NEGATIVE (NEGATIVE)
[2022-04-25] MEDS ORDERED: DUONEB 0.5-3 MG/3 ml Neb IH PRN (00:01)
[2022-04-25] MEDS ORDERED: TYLENOL 325 MG PO PRN (00:01)
[2022-04-25] MEDS ORDERED: Zofran 4 MG/2 ML VIAL IV PRN (00:01)
[2022-04-25] MEDS ORDERED: Cyclobenzaprine 10 MG ONE (00:16)
[2022-04-25] MEDS ORDERED: LYRICA 100MG ONE (00:16)
[2022-04-25] MEDS ORDERED: zyPREXA 5MG TABLET ONE (00:16)
[2022-04-25] MEDS ORDERED: zyPREXA 5MG TABLET PO ONE (00:30)
[2022-04-25] MEDS ORDERED: LYRICA 100MG PO ONE (00:30)
[2022-04-25] MEDS ORDERED: Cyclobenzaprine 10 MG PO ONE (00:30)
[2022-04-25] MEDS: MORPHINE SULFATE 2 MG INJ IV PRN ×2 (01:03→07:56)
[2022-04-25 05:54] LABS: Absolute Neutrophil Ct (ANC) 4.63 x10^3/uL (1.4-6.9); Basophil (Absolute #) 0.03 x10^3/uL (0-0.4); Eosinophil (Absolute #) 0.15 x10^3/uL (0-0.5); Hematocrit 39.6 % (42-50); Hemoglobin 13.1 g/dL (12.5-18.0); Lymphocyte (Absolute #) 2.27 x10^3/uL (1.0-4.6); Lymphocytes % 29.5 % (24.0-44.0); Mean Cell Volume 90.4 fL (78-100); Mean Corpuscular Hemoglobin 29.9 pg (26-32); Mean Corpuscular Hgb Concent. 33.1 g/dL (32-36); Mean Platelet Volume 11.6 fL (7.5-11.0); Monocyte (Absolute #) 0.59 x10^3/uL (0.0-1.3); Monocytes % 7.7 % (0.0-12.0); Neutrophil % 60.1 % (36.0-66.0); Platelet Count 223 x10^3/uL (150-450); Red Blood Count 4.38 x10^6/uL (4.1-5.6); Red Cell Distribution Width 12.5 % (11.5-14.0); White Blood Count 7.7 x10^3/uL (4.0-10.5)
[2022-04-25 06:49] LABS: ALBUMIN 3.3 g/dL (3.5-5.0); ALKALINE PHOSPHATASE 48 U/L (38-126); ANION GAP 5.2 MEQ/L (5-15); BLOOD UREA NITROGEN 10 mg/dL (9-20); CHLORIDE 105 mmol/L (98-107); Calcium 8.2 mg/dL (8.4-10.2); Carbon Dioxide 32 mmol/L (22-30); Creatinine 1 0.76 mg/dL (0.66-1.25); EST GLOMERULAR FILTRATION RATE > 60.0 ML/MIN; Glucose 96 mg/dL (74-106); Potassium 3.8 mmol/L (3.5-5.1); SGOT/AST 20 U/L (17-59); SGPT/ALT 18 U/L (0-50); SODIUM 138 mmol/L (137-145); Total Protein 5.7 g/dL (6.3-8.2)
[2022-04-25 07:03] VITALS: BP 136/60; PULSE 66; O2SAT 93
--- NOTE | 2022-04-25 09:18 | XRAY ---
Indication: Chest pain. Comparison: None Portable chest inflated and clear. Heart and mediastinal structures within normal limits. Bony thorax intact. Impression: Nonacute chest.
[2022-04-25] MEDS ORDERED: Cyclobenzaprine 10 MG PO SCH (10:00)
[2022-04-25] MEDS ORDERED: PROTONIX 40 MG IV IV SCH (10:00)
[2022-04-25] MEDS ORDERED: NON-FORMULARY ITEM (Atorvastatin Calcium [Atorvastatin Calcium] 20 MG Tablet) PO SCH (10:00)
[2022-04-25] MEDS ORDERED: Lopressor 25MG Tab PO SCH (10:00)
[2022-04-25] MEDS ORDERED: ZOCOR 20MG PO SCH (10:00)
[2022-04-25] MEDS ORDERED: ECOTRIN 81 MG PO SCH (10:00)
[2022-04-25] MEDS ORDERED: LYRICA 100MG PO SCH (10:00)
[2022-04-25] MEDS ORDERED: PERCOCET TABLET 5/325MG PO SCH (10:00)
[2022-04-25] MEDS ORDERED: zyPREXA 5MG TABLET PO SCH (22:00)
[2022-04-25] MEDS ORDERED: NON-FORMULARY ITEM (Olanzapine [Olanzapine] 10 MG Tablet) PO SCH (22:00)
--- NOTE | 2022-05-06 05:47 | PCM.SSS ---
History of Present Illness - Chief Complaint Chief Complaint: chest pain rule out acute ID Date: 04/25/22 History of Present Illness: is a 42 year old male. presented to ER after short period of intense chest pain, with some sob and radiation of the pain to the left shoulder, initial work-up negative and patient will be observed for serial troponins - Review of Systems Constitutional: No Fever, No Chills Eyes: No Symptoms Ears, Nose, & Throat: No Symptoms Respiratory: No Cough, No Short Of Breath Cardiac: No Chest Pain, No Edema, No Syncope Abdominal/Gastrointestinal: No Abdominal Pain, No Nausea, No Vomiting, No Diarrhea Genitourinary Symptoms: No Dysuria Musculoskeletal: No Back Pain, No Neck Pain Skin: No Rash Neurological: No Dizziness, No Focal Weakness, No Sensory Changes Psychological: No Symptoms Endocrine: No Symptoms Hematologic/Lymphatic: No Symptoms Immunological/Allergic: No Symptoms Medications & Allergies Home Medications: Home Medication List Cyclobenzaprine HCl 10 mg [Cyclobenzaprine 10 MG] 1 tab PO TID 12/19/21 [History Confirmed 04/24/22] Oxycodone HCl/Acetaminophen [Percocet 5-325 mg Tablet] 1 tab PO TID 12/19/21 [History Confirmed 04/24/22] Pregabalin [Lyrica 100Mg] 1 tab PO TID 12/19/21 [History Confirmed 04/24/22] Aspirin EC 81 mg [Ecotrin 81 mg] 81 mg PO DAILY 03/24/22 [History Confirmed 04/24/22] OLANZapine [Olanzapine] 10 mg PO HS 03/24/22 [History Confirmed 04/24/22] Atorvastatin Calcium 20 mg PO DAILY 04/24/22 [History Confirmed 04/24/22] Metoprolol Tartrate 25 mg [Lopressor 25MG Tab] 25 mg PO BID 04/24/22 [History Confirmed 04/24/22] Naproxen [EC-Naproxen] 500 mg PO BID PRN 10 Days #20 tablet 04/25/22 [Rx] Allergies/Adverse Reactions: Allergies Allergy/AdvReac Type Severity Reaction Status Date / Time ibuprofen Allergy Severe Tightness Verified 04/24/22 19:46 of Throat Iodine and Iodide Containing Allergy Severe Fainting Verified 04/24/22 19:46 Produc ketorolac [From Toradol] Allergy Severe Tightness Verified 04/24/22 19:46 of Throat methadone Allergy Severe Vomiting Verified 04/24/22 19:46 quetiapine [From Seroquel] Allergy Severe Blisters Verified 04/24/22 19:46 - Past Medical History Past Medical History: Yes Neurological History: No Pertinent History ENT History: No Pertinent History Cardiac History: Arrhythmia, Hypertension Respiratory History: No Pertinent History Endocrine Medical History: No Pertinent History Musculoskelatal History: Fractures GI Medical History: Gallbladder Disease History: No Pertinent History Pyscho-Social History: Anxiety, Depression Male Reproductive Disorders: No Pertinent History Comment: c7 fracture/snap. c4,5,6, fused - Past Surgical History Past Surgical History: Yes Neuro Surgical History: No Pertinent History Cardiac History: No Pertinent History Respiratory Surgery: No Pertinent History GI Surgical History: Cholecystectomy Genitourinary Surgical Hx: No Pertinent History Musculskeletal Surgical Hx: Orthopedic Surgery, Other Male Surgical History: No Pertinent History Other Surgical History: spinal x2. carpal tunnel - Social History Smoking Status: Former smoker Exposure to second hand smoke: Yes Alcohol: None Drug Use: marijuana - Physical Exam General Appearance: no apparent distress, alert Neurologic Exam: alert, oriented x 3, cooperative, normal mood/affect, nml cerebellar function, nml station & gait, sensation nml, No motor deficits Eye Exam: PERRL/EOMI, eyes nml inspection Ears, Nose, Throat Exam: normal ENT inspection, TMs normal, pharynx normal, moist mucous membranes Neck Exam: normal inspection, non-tender, supple, full range of motion Respiratory Exam: normal breath sounds, lungs clear, No respiratory distress Cardiovascular Exam: regular rate/rhythm, normal heart sounds, normal peripheral pulses Gastrointestinal/Abdomen Exam: soft, normal bowel sounds, No tenderness, No mass Back Exam: normal inspection, normal range of motion, No CVA tenderness, No vertebral tenderness Extremity Exam: normal inspection, normal range of motion, pelvis stable Skin Exam: normal color, warm, dry, No rash Lymphatic Exam: No adenopathy Assessment/Plan (1) Chest pain, rule out acute myocardial infarction Status: Acute Code(s): R07.9 - CHEST PAIN, UNSPECIFIED Hospital Summary - Hospital Course Hospital Course: Pt. had no further chest pain and serial troponins were negative. Pt. was stable for discharge to home with further evaluation on OP basis. - Vitals & Intake/Output Vital Signs: Vital Signs Temperature 97.8 F 04/25/22 07:02 Pulse Rate 66 04/25/22 07:02 Respiratory Rate 16 04/25/22 07:02 Blood Pressure 136/60 04/25/22 07:02 O2 Sat by Pulse Oximetry 93 L 04/25/22 07:02 - Lab Result Diagrams: 04/25/22 04:00 04/25/22 04:50 - Discharge Discharge Date: 04/25/22 Disposition: Home, Self-Care Condition: Stable Prescriptions: New Naproxen [EC-Naproxen] 500 mg PO BID PRN 10 Days #20 tablet PRN Reason: Pain Continue Oxycodone HCl/Acetaminophen [Percocet 5-325 mg Tablet] 1 tab PO TID Cyclobenzaprine HCl 10 mg [Cyclobenzaprine 10 MG] 1 tab PO TID Pregabalin [Lyrica 100Mg] 1 tab PO TID Aspirin EC 81 mg [Ecotrin 81 mg] 81 mg PO DAILY OLANZapine [Olanzapine] 10 mg PO HS Metoprolol Tartrate 25 mg [Lopressor 25MG Tab] 25 mg PO BID Atorvastatin Calcium 20 mg PO DAILY Instructions: Chest Pain That Is Not Caused by the Heart (DC) Additional Instructions: Make sure to keep appointment for Stress test AT [facility].
== END 2022-04-25 09:55 | disposition home or self-care (01) ==
LOC: ED 19:30 → MED SURG 23:59
PROVIDERS: ADMIT Family Medicine; ATTEND Family Medicine
DX: R07.9 Chest pain, unspecified (principal); I10 Essential (primary) hypertension; I48.91 Unspecified atrial fibrillation; F12.10 Cannabis abuse, uncomplicated; Z79.899 Other long term (current) drug therapy; Z20.828 Contact with and (suspected) exposure to other viral communicable diseases
CPT/HCPCS: 0241U; 36000; 36415; 71045; 80053; 80307; 82550; 83880; 84484; 85025; 85379; 93005; 93041; 93268; 96374; 96375; 99285; G0378; J2270; J2405; A9270-GY